=== PATIENT | male | born 1955 | race Caucasian/White ===

== ENCOUNTER 2023-11-01 08:14 | Emergency (ER) | payer MEDICARE ==
[~2023-11-01] VITALS: Ht 175.3 cm; Wt 88.6 kg
[2023-11-01 08:39] VITALS: BP 90/65; PULSE 110; RESP 20; TEMP 97.8; O2SAT 98
[2023-11-01] MEDS ORDERED: normal saline 1000ML IV soln IVB ONE (08:50)
== END 2023-11-01 11:40 | disposition home or self-care (01) ==
LOC: ER 08:15
DX: T69.9XXA Effect of reduced temperature, unspecified, initial encounter (principal); G20.A1 Parkinson's disease without dyskinesia, without mention of fluctuations; F12.90 Cannabis use, unspecified, uncomplicated; F31.9 Bipolar disorder, unspecified; Z59.00 Homelessness unspecified
CPT/HCPCS: 71045; 99283; 99284

== ENCOUNTER 2023-11-02 01:49 | Emergency (ER) | payer MEDICARE ==
[~2023-11-02] VITALS: Ht 175.3 cm; Wt 90.0 kg
[2023-11-02 02:10] VITALS: BP 91/68; PULSE 83; TEMP 98; O2SAT 99
[2023-11-02 06:45] VITALS: RESP 18
== END 2023-11-02 12:00 | disposition home or self-care (01) ==
LOC: ER 01:50
DX: R45.851 Suicidal ideations (principal); Z20.822 Contact with and (suspected) exposure to COVID-19; R44.0 Auditory hallucinations; G20.A1 Parkinson's disease without dyskinesia, without mention of fluctuations; F12.90 Cannabis use, unspecified, uncomplicated; Z76.5 Malingerer [conscious simulation]; Z59.00 Homelessness unspecified
CPT/HCPCS: 36415; 70450; 72125; 87811; 99285

== ENCOUNTER 2023-11-06 18:28 | Emergency (ER) | payer OTHER ==
[~2023-11-06] VITALS: Ht 175.3 cm; Wt 56.3 kg
[2023-11-06] MEDS ORDERED: DEUT6TAB PO (19:54)
[2023-11-06] MEDS ORDERED: azithromycin 250mg tablet PO ONE (21:45)
[2023-11-06] MEDS ORDERED: CefTRIAXone 500MG IM Kit w/LIDOcaine (for pt below or = to 150kg) IM ONE (21:45)
[2023-11-06] MEDS ORDERED: TINIDAZOLE 500 MG TABLET PO ONE (21:45)
[2023-11-07 04:11] LABS: BILIRUBIN,URINE NEGATIVE (Neg); CLARITY,URINE CLEAR (Clear); COLOR,URINE YELLOW (Yellow); GLUCOSE, URINE NEGATIVE (Neg); KETONES,URINE NEGATIVE (Neg); LEUKOCYTE ESTERASE ,URINE NEGATIVE (Neg); NITRITES, URINE NEGATIVE (Neg); OCCULT BLOOD,URINE SMALL (Neg); PROTEIN,URINE NEGATIVE (Neg)
[2023-11-07 04:14] LABS: MEAN PLATELET VOLUME 10.2 FL (7.4-10.4)
[2023-11-07 04:16] LABS: BASOPHILS # (AUTO) 0.1 X10'3 (0-0.2); BASOPHILS % (AUTO) 0.7 % (0-1); EOSINOPHILS # (AUTO) 0.3 X10'3 (0-0.9); EOSINOPHILS % (AUTO) 2.7 % (0-6); HEMATOCRIT 40.9 % (42.0-52.0); HEMOGLOBIN 13.6 g/dl (14.0-17.9); LYMPHOCYTES # (AUTO) 1.5 X10'3 (1.1-4.8); LYMPHOCYTES % (AUTO) 12.5 % (21-51); MEAN CORPUSCULAR HEMOGLOBIN 31.9 PG (27.0-31.0); MEAN CORPUSCULAR HGB CONC 33.2 g/dL (33.0-36.5); MEAN CORPUSCULAR VOLUME 96.1 FL (78-98); MONOCYTES # (AUTO) 1.5 X10'3 (0-0.9); MONOCYTES % (AUTO) 11.8 % (2-12); NEUTROPHILS # (AUTO) 8.9 X10'3 (1.8-7.7); NEUTROPHILS % (AUTO) 72.3 % (42-75); PLATELET COUNT 265 X10'3 (140-440); RED BLOOD COUNT 4.25 X10'6 (4.70-6.10); RED CELL DISTRIBUTION WIDTH 13.7 % (11.5-14.5); WHITE BLOOD COUNT 12.4 X10'3 (4.5-11.0)
[2023-11-07 04:18] LABS: UA COLLECTION TYPE STRAIGHT CATH
[2023-11-07 04:19] LABS: ALANINE AMINOTRANSFERASE 44 U/L (12-78); ALBUMIN 3.1 G/DL (3.4-5.0); ALKALINE PHOSPHATASE 81 IU/L (46-116); ANION GAP 7 (8-16); ASPARTATE AMINO TRANSFERASE 34 U/L (10-37); BILIRUBIN,TOTAL 0.5 MG/DL (0.1-1.0); BLOOD UREA NITROGEN 20 MG/DL (7-18); BUN/CREATININE RATIO 13.9 (10.0-20.0); CALCIUM 11.9 MG/DL (8.5-10.1); CHLORIDE 108 MMOL/L (99-107); CREATININE 1.44 MG/DL (0.60-1.10); GLUCOSE 142 MG/DL (70-104); POTASSIUM 4.2 MMOL/L (3.5-5.1); SODIUM 139 MMOL/L (135-145); TOTAL PROTEIN 6.3 G/DL (6.4-8.2); eCRCL 38 ML/MIN; eGFR 48 ML/MIN
[2023-11-07 04:21] LABS: BACTERIA,URINE FEW /HPF (Neg); MUCUS STRANDS NONE SEEN /LPF (Neg); SQUAMOUS EPITHELIAL CELL,UR NONE SEEN /LPF (FEW); WBC,URINE 0-4 /HPF (0-4)
[2023-11-07 04:26] LABS: URINE AMPHETAMINE SCREEN NEGATIVE (Neg); URINE BARBITUATE SCREEN NEGATIVE (Neg); URINE BENZODIAZEPINES SCREEN NEGATIVE (Neg); URINE CANNABINOID SCREEN NEGATIVE (Neg); URINE COCAINE SCREEN NEGATIVE (Neg); URINE METHADONE SCREEN NEGATIVE (Neg); URINE OPIATE SCREEN NEGATIVE (Neg); URINE PHENCYCLIDINE SCREEN NEGATIVE (Neg)
[2023-11-07 04:28] LABS: ETHANOL < 10 MG/DL (<10); THYROID STIMULATING HORMONE 1.11 ulU/ml (0.34-4.50)
[2023-11-08] MEDS ORDERED: ziprasidone IM 20mg inj **IM only IM ONE (19:00)
[2023-11-09] MEDS ORDERED: ziprasidone IM 20mg inj **IM only ONE (19:46)
[2023-11-11] MEDS ORDERED: ziprasidone IM 20mg inj **IM only IM ONE (14:10)
[2023-11-11] MEDS ORDERED: nicotine 21mg patch - 24 hr TD ONE (15:40)
[2023-11-12] MEDS: ibuprofen 200mg tablet PO PRN (10:08)
[2023-11-12] MEDS ORDERED: DEUT9TAB PO ×2 (13:07→19:10)
[2023-11-12] MEDS ORDERED: CARI1.5C PO ×2 (13:07→19:10)
[2023-11-12] MEDS ORDERED: FENO145T38 PO ×2 (13:07→19:10)
[2023-11-12] MEDS ORDERED: DEUT6TAB PO (19:10)
[2023-11-13] MEDS: DEUTETRABENAZINE PO SCH ×2 (08:00)
[2023-11-13] MEDS: CARIPRAZINE 1.5 MG CAPSULE PO SCH (08:02)
[2023-11-13] MEDS: fenofibrate 145mg tablet PO SCH (08:02)
[2023-11-14] MEDS: DEUTETRABENAZINE PO SCH ×2 (08:00)
[2023-11-14] MEDS: CARIPRAZINE 1.5 MG CAPSULE PO SCH (08:00)
[2023-11-14] MEDS: fenofibrate 145mg tablet PO SCH (08:47)
[2023-11-15] MEDS: CARIPRAZINE 1.5 MG CAPSULE PO SCH (08:00)
[2023-11-15] MEDS: DEUTETRABENAZINE PO SCH ×2 (08:00)
[2023-11-15] MEDS: fenofibrate 145mg tablet PO SCH (08:00)
[2023-11-15] MEDS: ibuprofen 200mg tablet PO PRN (12:41)
[2023-11-15] MEDS ORDERED: ziprasidone IM 20mg inj **IM only IM ONE (21:00)
[2023-11-16] MEDS: DEUTETRABENAZINE PO SCH ×2 (08:00)
[2023-11-16] MEDS: CARIPRAZINE 1.5 MG CAPSULE PO SCH (08:00)
[2023-11-16] MEDS: fenofibrate 145mg tablet PO SCH (09:06)
[2023-11-16] MEDS ORDERED: LORazepam 1 MG tablet PO ONE (20:35)
[2023-11-17] MEDS: DEUTETRABENAZINE PO SCH ×2 (08:00)
[2023-11-17] MEDS: CARIPRAZINE 1.5 MG CAPSULE PO SCH (08:00)
[2023-11-17] MEDS: fenofibrate 145mg tablet PO SCH (08:55)
[2023-11-17] MEDS: nicotine 21mg patch - 24 hr TD SCH (11:06)
[2023-11-17] MEDS: ibuprofen 200mg tablet PO PRN (14:52)
[2023-11-18] MEDS: ibuprofen 200mg tablet PO PRN (05:15)
[2023-11-18] MEDS: DEUTETRABENAZINE PO SCH ×2 (08:00)
[2023-11-18] MEDS: CARIPRAZINE 1.5 MG CAPSULE PO SCH ×2 (08:00→08:17)
[2023-11-18] MEDS: nicotine 21mg patch - 24 hr TD SCH (08:17)
[2023-11-18] MEDS: fenofibrate 145mg tablet PO SCH (08:17)
[2023-11-18] MEDS ORDERED: NICOTINE POLACRILEX 2 MG LOZENGE BC PRN (22:25)
[2023-11-19] MEDS: DEUTETRABENAZINE PO SCH ×2 (08:00)
[2023-11-19] MEDS: fenofibrate 145mg tablet PO SCH (08:00)
[2023-11-19] MEDS: nicotine 21mg patch - 24 hr TD SCH ×2 (08:35→19:08)
[2023-11-19] MEDS: CARIPRAZINE 1.5 MG CAPSULE PO SCH (08:35)
[2023-11-19] MEDS ORDERED: OLANZapine 2.5MG tablet PO PRN (20:15)
[2023-11-20] MEDS: DEUTETRABENAZINE PO SCH ×2 (08:00)
[2023-11-20] MEDS: CARIPRAZINE 1.5 MG CAPSULE PO SCH (08:56)
[2023-11-20] MEDS: fenofibrate 145mg tablet PO SCH (08:56)
[2023-11-20 18:00] VITALS: BP 122/72; PULSE 82; TEMP 98.5; O2SAT 97
[2023-11-21 00:59] VITALS: RESP 16
[2023-11-21] MEDS: CARIPRAZINE 1.5 MG CAPSULE PO SCH (08:00)
[2023-11-21] MEDS: DEUTETRABENAZINE PO SCH ×2 (08:00)
[2023-11-21] MEDS: fenofibrate 145mg tablet PO SCH (08:22)
[2023-11-21] MEDS: nicotine 21mg patch - 24 hr TD SCH (08:22)
== END 2023-11-21 12:25 | disposition home or self-care (01) ==
LOC: ER 18:28 → EEVIPCON 18:28 → ER 11-21 12:25
DX: G20.A1 Parkinson's disease without dyskinesia, without mention of fluctuations (principal); Z20.822 Contact with and (suspected) exposure to COVID-19; F31.9 Bipolar disorder, unspecified; F12.10 Cannabis abuse, uncomplicated; Z59.00 Homelessness unspecified; Z79.899 Other long term (current) drug therapy
CPT/HCPCS: 36415; 80053; 80305; 80320; 81001; 84443; 85025; 87811; 96372; 99284; 99285